=== PATIENT | female | born 1965 | race Caucasian/White ===

== ENCOUNTER 2016-10-27 09:09 | Day surgery (SDC) | payer BC ==
[~2016-10-27 09:09] MED LIST: LIDOCAINE HCL 1% MPF SOL ONE; PROPOFOL 500 MG/50 ML EMU IV ONE
[2016-10-27 11:39] VITALS: BP 110/73; PULSE 48; RESP 20; TEMP 97.9; O2SAT 100
== END 2016-10-27 11:50 | disposition home or self-care (01) ==
LOC: SURG 09:09
PROVIDERS: ATTEND Surgery
DX: Z12.11 Encounter for screening for malignant neoplasm of colon (principal); Z86.010 Personal history of colon polyps
CPT/HCPCS: 45378; J2001; J2704